=== PATIENT | male | born 1975 | race African-American/Black ===

== ENCOUNTER 2018-01-04 07:10 | Inpatient (IN) | payer OTHER ==
[~2018-01-04] VITALS: Ht 162.6 cm; Wt 69.9 kg
--- NOTE | ~2018-01-04 | EEG ---
[facility] [place] [address] ELECTROENCEPHALOGRAM Name: GARY GARY Room #: 422-P [facility] IN M.R.#: [id number] Admission: 01/04/18 Attend Phys: Letty Enriquez Discharge: 01/05/18 Date of : 75 Report #: [id number] THIS REPORT FOR: //name// CC: JAYLA physician/PCP Letty Soni DATE OF SERVICE: 01/04/2018 This patient is being evaluated for the possibility of seizure. EEG was done by placing the electrodes by standard 10-20 system of electrode placement. Both referential and sequential montages were used for recording. Background activity in this patient's EEG is about 11 Hz and 40 microvolt. It is a symmetrical activity. This patient became drowsy, that is associated with bilateral slowing and vertex sharp waves on both sides. Photic stimulation is unremarkable. Throughout the record, no active epileptiform activity was noticed. IMPRESSION: This patient's EEG is within normal limits. No active epileptiform activity was noticed during this record in spite of the patient's history of seizure. In spite of the fact that he had recently to see that not even slowing was noticed, it is desirable to do some further workup on this patient like prolonged EEG and the patient was recommended to see his neurologist for that. Thank you very much for this referral. <ELECTRONICALLY SIGNED> By: Bryon Daniels MD 01/15/18 1906 [id number] 1612 Bryon Daniels MD /sánchez
--- NOTE | ~2018-01-04 | HC ---
[facility] [place] [address] CONSULTATION Name: GARY GARY Room #: 422-P [facility] IN M.R.#: [id number] Admission: 01/04/18 Attend Phys: Letty Soni Discharge: 01/05/18 Date of : 75 Report #: [id number] THIS REPORT FOR: //name// CC: JAYLA physician/PCP Letty Soni DATE OF SERVICE: 01/04/2018 HISTORY OF PRESENT ILLNESS: This is a 42-year-old male patient who was evaluated by me for seizures. The patient provides some history and the provides some history and I got some of the history by reviewing this patient's record. The patient had 2 seizures today. He came to Emergency Room with a seizure when his Dilantin level was therapeutic at 11.7. They were going to dismiss him, but then he had another seizure and they admitted him. Apparently, it was a grand mal seizure. The patient is postictal after that. He does not know what brought it on. He indicates seizures started about 6 years ago. It started spontaneously. He has not been able to work, but this started before this happened. REVIEW OF SYSTEMS: Indicate that the patient has a seizure disorder and he had 2 seizures. He does have stress. These seizures happened in spite of being on Dilantin. He talks very slowly. He does indicate that he is under stress, but otherwise he is not complaining of any new eye, ENT, cardiac, respiratory, , musculoskeletal, constitutional, dermatological, hematological, throat, allergic, endocrine symptom. He does have stress and he was nauseous and is not nauseous anymore. PAST MEDICAL HISTORY: Positive for seizure. FAMILY HISTORY: Negative for congenital epilepsy. SOCIAL HISTORY: He is . It is not clear what the reasons for his seizures are. PHYSICAL EXAMINATION: He is alert, responsive, able to follow simple command. He talks very softly, but his speech, concentration, fund of knowledge and memory appeared to be back to his baseline. His cranial nerve examination 12-01 is unremarkable. I could not have a good look at the patient's fundus. Strength, sensation, reflexes and tone is symmetrical. There is no meningeal sign. He is a reasonably well-developed individual who does not have any dysmorphic features of eyes, ears and face. He has no thyroid mass. He has no carotid bruit. Cardiac examination does not appear to be showing any abnormality. No respiratory difficulty or rhonchi on either side. Blood pressure is 125/82, respirations 20, pulse is 110, temperature is 98.0. [facility] [address] [place] [address] CONSULTATION Name: GARY GARY Room #: 422-P [facility] IN ..#: [id number] Admission: 01/04/18 Attend Phys: Letty Soni Discharge: 01/05/18 Date of : 75 Report #: [id number] LABORATORY DATA: White count is 6.9, GFR is 67. He did have a CT scan of the head, which was mostly unremarkable. IMPRESSION: Seizure by history. I do not have prior record to determine the kind of seizure he is having. I discussed the situation with the patient. Since he has seizure while being on Dilantin, we will go ahead and add Keppra. I discussed the potential side effect of Keppra and alternative. The patient and the family understand that. They just had an MRI of the brain done. They do not want any repeat MRI. I did discuss with them seizure precaution and the fact that he cannot drive. RECOMMENDATIONS: 1. Add Keppra. 2. Switch to p.o. Keppra soon. 3. Continue both medications at the moment and if his seizures become controlled, then we can try to taper off one, but that is in a long run. 4. He must take seizure precautions. 5. I told them we will take care of acute management only and will need to follow up with the primary otherwise. <ELECTRONICALLY SIGNED> By: Bryon Daniels MD 01/15/18 1355 1451 1844 Bryon Daniels MD /nt
[2018-01-04 07:11] VITALS: BP 155/100
[2018-01-04 07:36] LABS: ABSOLUTE NEUTROPHILS 3.9 thou/uL (1.4-8.2); BASOPHILS 0.5 % (0.0-2.0); EOSINOPHILS 2.7 % (0.0-3.0); HEMOGLOBIN 15.3 gm/dL (14.0-18.0); LYMPHOCYTES 29.5 % (24.0-44.0); MCH 34.1 pg (26.0-34.0); MCHC 34.7 g/dL (28.0-37.0); MCV 98.5 fL (80.0-100.0); POLYS 56.3 % (36.0-66.0); RBC 4.47 mil/uL (4.50-6.00); WBC 6.9 thou/uL (4.0-11.0)
[2018-01-04] MEDS ORDERED: DILANTIN100 MG PO (08:00)
[2018-01-04] MEDS ORDERED: POTASSIUM PO (08:01)
[2018-01-04 08:05] LABS: PLATELET COUNT 179 thou/uL (150-400)
[2018-01-04 08:07] LABS: CREATININE 1.4 mg/dL (0.7-1.3); POTASSIUM 4.1 mmol/L (3.5-5.1)
[2018-01-04 08:31] LABS: URINE BILIRUBIN NEGATIVE (Negative); URINE BLOOD 1+ (Negative); URINE CLARITY CLEAR; URINE COLOR YELLOW; URINE GLUCOSE-RANDOM* NEGATIVE (Negative); URINE KETONES 1+ (Negative); URINE LEUKOCYTES-REFLEX NEGATIVE (Negative); URINE NITRITE-REFLEX NEGATIVE (Negative); URINE PROTEIN (DIPSTICK) 1+ (Negative); URINE UROBILINOGEN 0.2 E.U./dl (0.2-1.0)
[2018-01-04 08:39] LABS: AMP/METHAMP Negative (Negative); BARBITURATES Negative (Negative); BENZODIAZEPINES Negative (Negative); COCAINE Negative (Negative); METHADONE Negative (Negative); OPIATES Negative (Negative); PCP Negative (Negative)
[2018-01-04 08:42] LABS: BACTERIA-REFLEX 1-9 Few /HPF (None Seen); CASTS None Seen /LPF (None Seen); CRYSTALS None Seen /LPF (None Seen); SQUAMOUS 0-3 Few /LPF (0-3); URINE RBC 0-2 Rare /HPF (0-2); URINE WBC-REFLEX None Seen /HPF (0-5)
[2018-01-04 08:56] VITALS: BP 123/82
[2018-01-04 11:15] VITALS: BP 125/82
[2018-01-04 11:50] LABS: TSH 1.739 uIU/mL (0.358-3.740)
[2018-01-04 15:20] VITALS: BP 142/91
[2018-01-04 16:16] LABS: ALBUMIN 4.5 g/dL (3.4-5.0); CALCIUM 10.2 mg/dL (8.5-10.1); CREATININE 1.4 mg/dL (0.7-1.3); MAGNESIUM 2.1 mg/dL (1.8-2.4); POTASSIUM 4.2 mmol/L (3.5-5.1); TOTAL BILIRUBIN 0.6 mg/dL (<0.1-1.0); TOTAL PROTEIN 8.5 g/dL (6.4-8.2)
[2018-01-04 20:29] VITALS: BP 143/100
[2018-01-05 04:12] VITALS: BP 127/88
[2018-01-05 08:43] VITALS: BP 136/94
[2018-01-05] MEDS ORDERED: KEPPRA 500 MG500 M1 PO (10:10)
[2018-01-05 10:35] VITALS: BP 136/94
[2018-01-05 11:01] VITALS: BP 136/94
[2018-01-05 11:53] LABS: ALBUMIN 4.4 g/dL (3.4-5.0); CALCIUM 9.7 mg/dL (8.5-10.1); CREATININE 0.9 mg/dL (0.7-1.3); POTASSIUM 3.2 mmol/L (3.5-5.1); TOTAL PROTEIN 8.2 g/dL (6.4-8.2)
== END 2018-01-05 14:24 | disposition home or self-care (01) | DRG 101 ==
LOC: ER 07:10 → 4E 09:06 → ER 09:06 → EROBS 09:52 → 4E 10:50 → ENTRNSPT 01-05 11:53 → EDTRNSPTSTS 01-05 11:54 → 4E 01-05 14:24
PROVIDERS: Emergency Medicine; Hospitalist; Psychiatry & Neurology Neuromuscular Medicine
DX: G40.901 Epilepsy, unspecified, not intractable, with status epilepticus (principal); Z88.8 Allergy status to other drugs, medicaments and biological substances
CPT/HCPCS: 10183

== ENCOUNTER 2018-04-02 18:31 | Emergency (ER) | payer OTHER ==
[~2018-04-02] VITALS: Ht 165.1 cm; Wt 69.8 kg
--- NOTE | ~2018-04-02 | EKG ---
[address] [address] ELECTROCARDIOGRAM REPORT Name: GARY GARY Room #: [facility]#: [id number] Admission: 04/02/18 Attend Phys: Discharge: Date of : 75 Report #: [id number] THIS REPORT FOR: //name// [facility] ED Test Date: 2018-04-02 Test Time: 21:09:33 Pat Name: GARY GARY Department: Room: Gender: Overhead Distribution Engineer: WILLIANJAYDON : 1975 Requested By: Nanda Gonzales Order Number: [id number] MD: Sathya Garcia Measurements Intervals [place] Rate: 119 P: 34 AK: 140 QRS: 12 QRSD: 86 T: 8 QT: 304 QTc: 428 Interpretive Statements Sinus tachycardia No previous ECG available for comparison Electronically Signed On 04-02-2018 21:56:24 CDT by Sathya Garcia [email or web address] <ELECTRONICALLY SIGNED> By: Sathya Garcia MD 04/02/18 2156 2109 Sathya Garcia MD /EPI
[~2018-04-02 18:31] MED LIST: DILANTIN100 MG PO; KEPPRA 500 MG500 M1 PO; POTASSIUM PO
[2018-04-02 19:11] LABS: ABSOLUTE NEUTROPHILS 5.8 thou/uL (1.4-8.2); BASOPHILS 0.4 % (0.0-2.0); EOSINOPHILS 0.2 % (0.0-3.0); HEMATOCRIT 44.6 % (42.0-52.0); HEMOGLOBIN 15.4 gm/dL (14.0-18.0); LYMPHOCYTES 26.6 % (24.0-44.0); MCH 34.7 pg (26.0-34.0); MCHC 34.6 g/dL (28.0-37.0); MCV 100.3 fL (80.0-100.0); MONOCYTES 10.7 % (1.0-8.0); PLATELET COUNT 162 thou/uL (150-400); POLYS 62.1 % (36.0-66.0); RBC 4.44 mil/uL (4.50-6.00); RDW 14.3 % (10.5-14.5); WBC 9.3 thou/uL (4.0-11.0)
[2018-04-02 19:19] LABS: CREATININE 1.3 mg/dL (0.7-1.3); POTASSIUM 3.5 mmol/L (3.5-5.1)
[2018-04-02 19:30] LABS: ALBUMIN 4.7 g/dL (3.4-5.0); DIRECT BILIRUBIN 0.2 mg/dL (<0.1-0.3); TOTAL BILIRUBIN 0.7 mg/dL (<0.1-1.0); TOTAL PROTEIN 8.8 g/dL (6.4-8.2)
[2018-04-02 19:31] LABS: URINE BILIRUBIN NEGATIVE (Negative); URINE BLOOD 1+ (Negative); URINE CLARITY CLEAR; URINE COLOR YELLOW; URINE GLUCOSE-RANDOM* NEGATIVE (Negative); URINE KETONES TRACE (Negative); URINE LEUKOCYTES NEGATIVE (Negative); URINE NITRITE NEGATIVE (Negative); URINE PROTEIN (DIPSTICK) 1+ (Negative); URINE SPECIFIC GRAVITY 1.025 (1.005-1.035); URINE UROBILINOGEN 0.2 E.U./dl (0.2-1.0)
[2018-04-02 19:41] LABS: AMP/METHAMP Negative (Negative); BARBITURATES Negative (Negative); BENZODIAZEPINES Negative (Negative); COCAINE Negative (Negative); METHADONE Negative (Negative); OPIATES Negative (Negative); PCP Negative (Negative)
[2018-04-02 19:45] LABS: CASTS None Seen /LPF (None Seen); CRYSTALS None Seen /LPF (None Seen); SQUAMOUS 0-3 Few /LPF (0-3); URINE RBC 0-2 Rare /HPF (0-2); URINE WBC 0-5 Rare /HPF (0-5)
[2018-04-02 19:46] LABS: BACTERIA None Seen /HPF (None Seen)
== END 2018-04-02 21:57 | disposition home or self-care (01) ==
LOC: ER 18:31
PROVIDERS: Emergency Medicine
DX: R56.9 Unspecified convulsions (principal); R79.89 Other specified abnormal findings of blood chemistry; S09.90XA Unspecified injury of head, initial encounter; R74.0 Nonspecific elevation of levels of transaminase and lactic acid dehydrogenase [LDH]; E87.2 Acidosis; N28.89 Other specified disorders of kidney and ureter; W10.9XXA Fall (on) (from) unspecified stairs and steps, initial encounter; Y93.89 Activity, other specified; Y92.89 Other specified places as the place of occurrence of the external cause; Y99.8 Other external cause status; Z88.8 Allergy status to other drugs, medicaments and biological substances

== ENCOUNTER 2018-11-27 10:13 | Inpatient (IN) | payer OTHER ==
[~2018-11-27] VITALS: Ht 167.6 cm; Wt 75.3 kg
[2018-11-27 10:14] VITALS: BP 142/74
[2018-11-27 10:46] LABS: HEMATOCRIT 47.4 % (42.0-52.0); HEMOGLOBIN 16.2 gm/dL (14.0-18.0); MCH 34.3 pg (26.0-34.0); MCHC 34.1 g/dL (28.0-37.0); MCV 100.5 fL (80.0-100.0); PLATELET COUNT 168 thou/uL (150-400); RBC 4.72 mil/uL (4.50-6.00); RDW 13.6 % (10.5-14.5); WBC 11.9 thou/uL (4.0-11.0)
[2018-11-27 11:01] LABS: CALCIUM 10.4 mg/dL (8.5-10.1); CREATININE 1.6 mg/dL (0.7-1.3)
[2018-11-27 11:06] LABS: ALBUMIN 4.7 g/dL (3.4-5.0); MAGNESIUM 2.5 mg/dL (1.8-2.4); PHOSPHORUS 4.7 mg/dL (2.5-4.9); TOTAL BILIRUBIN 1.1 mg/dL (<0.1-1.0); TOTAL PROTEIN 9.3 g/dL (6.4-8.2)
[2018-11-27 12:25] LABS: ABSOLUTE NEUTROPHILS 7.3 thou/uL (1.4-8.2)
[2018-11-27 14:31] LABS: TSH 1.693 uIU/mL (0.358-3.740)
[2018-11-27 16:07] VITALS: BP 120/72
[2018-11-27 17:28] VITALS: BP 142/96
--- NOTE | 2018-11-27 19:55 | NUR ---
PT ARRIVED ON UNIT AT 17:20. PT ALERT XS 4 PLEASANT AND COOPERATIVE WITH CARE ADMISSION PAPETRWORK COMPLETED. TELE MONITOR APPLIED. ACCUCHECK DONE. DINNER SERVED. NAME BANDS AND ALLERGY AND FALL BANDS APPLIED. ASSESSMENT COMPLETED. FLUIDS INFUSING ORDERED. PT W/O PAIN OR RESP DISTRESS. NO SEIZURE ACTIVITY NOTED.
[2018-11-27 20:40] VITALS: BP 145/93
[2018-11-27 23:08] LABS: GLYCOHEMOGLOBIN (HGB A1C) 5.6 % (4.8-5.6)
[2018-11-27 23:15] VITALS: BP 136/100
--- NOTE | 2018-11-28 03:23 | NUR ---
PT MAKING PROGRESS TOWARDS GOALS. HAS DENIED ANY NAUSEA OR GI DISTRESS OVERNIGHT. HAS DENIED ANY DISCOMFORTS. CONTINUE TO MONITOR.
[2018-11-28 04:00] VITALS: BP 143/98
[2018-11-28 05:51] LABS: HEMOGLOBIN 15.5 gm/dL (14.0-18.0); MCH 34.4 pg (26.0-34.0); MCHC 35.1 g/dL (28.0-37.0); MCV 97.8 fL (80.0-100.0); PLATELET COUNT 140 thou/uL (150-400); RDW 13.6 % (10.5-14.5); WBC 7.2 thou/uL (4.0-11.0)
[2018-11-28 06:07] LABS: CALCIUM 9.5 mg/dL (8.5-10.1); CREATININE 0.9 mg/dL (0.7-1.3); MAGNESIUM 1.9 mg/dL (1.8-2.4)
[2018-11-28 06:14] LABS: POTASSIUM 2.8 mmol/L (3.5-5.1)
[2018-11-28 06:42] LABS: ABSOLUTE NEUTROPHILS 4.1 thou/uL (1.4-8.2); ANISOCYTOSIS 1+; PLATELET ESTIMATE DECREASED
[2018-11-28 06:43] LABS: POLYCHROMASIA OCCASIONAL
[2018-11-28 07:37] VITALS: BP 153/96
--- NOTE | 2018-11-28 10:40 | EKG ---
[address] [address] ELECTROCARDIOGRAM REPORT Name: GARY GARY Room #: 356-P [facility] IN M.R.#: [id number] Admission: 11/27/18 Attend Phys: Oleg Hansen MD Discharge: Date of : 75 Report #: [id number] THIS REPORT FOR: //name// [facility] ED Test Date: 2018-11-27 Test Time: 10:40:10 Pat Name: GARY GARY Department: Room: 356 Gender: M Picture Frame Maker: VALDO : 1975 Requested By: Janey Duque Order Number: [id number] MD: Mesfin Brady Measurements Intervals [place] Rate: 112 P: 28 MS: 156 QRS: 24 QRSD: 80 T: 8 QT: 330 QTc: 451 Interpretive Statements Sinus tachycardia Probable left atrial enlargement RSR' in V1 or V2, probably normal variant Artifact in lead(s) I,II,III,aVR,aVF,V1 Compared to ECG 04/02/2018 21:09:33 No significant change Electronically Signed On 11-28-2018 10:40:27 WOOD GLUER by Mesfin Brady [email or web address] <ELECTRONICALLY SIGNED> By: Mesfin Brady MD 11/28/18 1040 1040 1040 Mesfin Brady MD /EPI
--- NOTE | 2018-11-28 10:49 | NUR ---
Assumed care of Pt at 0700. Pt visibly anxious, concerned about his mother possibly being evicted and having no way to get ahold of her since she does not have phone. later on became increasingly agitated during EEG, saying the tech was making unreasonable requests. visibly shaking and upset. physician notified - came to examine patient at bedside - patient refusing to listen - pulled out IV - asking to sign AMA. AMA paperwork signed by patient. Now waiting on ride.
--- NOTE | 2018-11-30 09:54 | HC ---
[facility] [place] [address] CONSULTATION Name: GARY GARY Room #: 356-P [facility] IN .R.#: [id number] Admission: 11/27/18 Attend Phys: Oleg Hansen MD Discharge: 11/28/18 Date of : 75 Report #: [id number] THIS REPORT FOR: //name// CC: NASH Hansen Physician staff DATE OF SERVICE: 11/27/2018 HISTORY OF PRESENT ILLNESS: This is a 43-year-old male patient who was evaluated by me for seizure. The patient provides a pretty patchy history. He indicated that he started having seizure about 10 years ago. He indicated it started spontaneously. In fact, he was driving and he had a seizure. Then, he saw a neurologist at [facility]. Subsequently, he shifted his care to Dr. Carbone at [place]. He indicates that he has tried multiple medications for seizures and many of them make it worse. The last medication he tried was Dilantin. He indicated with Dilantin he will have 1 or 2 seizures per week. He does not provide a good description of the seizure. He said it is a grand mal seizure. He said he has a postictal period. After that he will not tell me whether he bites his tongue or not. He is involved with disability at the moment. He indicates last 24 hours, he had two seizures, which is more than he usually gets. He was out of his Dilantin. Apparently, he was not taking it properly. When he came in, his Dilantin level was 0 indicating that he has not taken any Dilantin for probably a few days. REVIEW OF SYSTEMS: Indicate the patient at one time had some nausea and vomiting. He apparently has a renal mass that was diagnosed in [facility]. He said he never went for a followup. He does drink moderate amount of alcohol. He smokes marijuana. He denies any use of a stimulant like cocaine or amphetamines. I carried out a 14-point review of system and 14-point review of system was mostly unremarkable. He does indicate that he has a lot of stress and anxiety. He indicates some of the physicians have told him that his seizures are related to anxiety. He was not having any constitutional, dermatological, hematological, throat or allergic symptom. He denies any chest pain or respiratory difficulty. He had some nausea. There does not appear to be any prominent symptom. His symptoms are pretty poorly defined. PAST MEDICAL HISTORY: Positive for seizure, but I do not have any records available. FAMILY HISTORY: Negative for early age stroke. SOCIAL HISTORY: He said he does not smoke cigarettes. He smokes marijuana. He drinks alcohol, he drank two beers yesterday, he will not quantify how much he drinks, but he says he mostly drinks beer. [facility] [address] [place] [address] CONSULTATION Name: GARY GARY Room #: 356-P [facility] IN M.R.#: [id number] Admission: 11/27/18 Attend Phys: Oleg Hansen MD Discharge: 11/28/18 Date of : 75 Report #: [id number] PHYSICAL EXAMINATION: The patient's examination also indicates he is alert, responsive, able to follow simple commands. His speech, concentration, fund of knowledge and memory is at his baseline. His cranial nerve examinations appear unremarkable. He moves slowly, but his strength, sensation, reflexes and tones are symmetrical. He does not have any meningeal sign. He did not cooperate with the fundus examination. He is reasonably well-developed individual who does not have any dysmorphic features of eyes, ears and face. His vision and hearing is adequate. Cardiac examination is unremarkable. No respiratory difficulty was noticed. Blood pressure is 120/72, respirations 16, pulse is 90 and temperature is 98.5. His white count is 11.9. He has no thyroid mass. For some reason, his MCV is 100.5. He did not have any imaging study here. His pulses are palpable. He has no edema, cyanosis or jaundice. IMPRESSION: The patient has a history of seizure. His renal mass is worrisome. 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 RECOMMENDATIONS: 1. We will get a CT. 2. We will get an EEG. 3. He needs an MRI. 4. He had an MRI, so I do not have his record. 5. I will suggest starting him back on his Dilantin until the diagnosis is more established. It looks like he got a gram of Dilantin in the Emergency Room, so I will not give him tonight, but probably start him tomorrow. Thank you very much for this referral and if you have any question, please feel free to contact me. <ELECTRONICALLY SIGNED> By: Bryon Daniels MD 11/30/18 0954 1640 0504 Bryon Daniels MD /nt
--- NOTE | 2018-11-30 09:55 | EEG ---
[facility] [place] [address] ELECTROENCEPHALOGRAM Name: GARY GARY Room #: 356-P [facility] IN M.R.#: [id number] Admission: 11/27/18 Attend Phys: Oleg Hansen MD Discharge: 11/28/18 Date of : 75 Report #: [id number] THIS REPORT FOR: //name// CC: NASH Hansen Physician staff This patient is being evaluated for seizure. EEG was done by placing the electrode by standard 10-20 system of electrode placement. Both referential and sequential montages were used for recording. The patient did not cooperate and lot of artifact is present. Background activity appeared to be about 10 Hz and 30 microvolt. It is a symmetrical activity. This patient became drowsy that is associated with bilateral slowing. The patient refused photic stimulations. Throughout the record, no active epileptiform activity was noticed. IMPRESSION: In spite of the patient's history of seizures, no active epileptiform activity or any postictal slowing was noticed during this EEG. Thank you very much for this referral. <ELECTRONICALLY SIGNED> By: Bryon Daniels MD 11/30/18 0955 1119 1127 Bryon Daniels MD /nt
== END 2018-11-28 15:33 | disposition left against medical advice (07) | DRG 683 ==
LOC: ER 10:13 → EROBS 12:08 → 3W 17:10
PROVIDERS: Nurse Practitioner; Nurse Practitioner Family; ADMIT Internal Medicine
DX: N17.9 Acute kidney failure, unspecified (principal); E87.2 Acidosis; G40.909 Epilepsy, unspecified, not intractable, without status epilepticus; F12.10 Cannabis abuse, uncomplicated; Z53.21 Procedure and treatment not carried out due to patient leaving prior to being seen by health care provider; Z28.21 Immunization not carried out because of patient refusal; Z88.8 Allergy status to other drugs, medicaments and biological substances; Z91.14 Patient's other noncompliance with medication regimen
CPT/HCPCS: 10879